=== PATIENT | female | born 1995 | race Caucasian/White ===

== ENCOUNTER 2018-07-08 13:58 | Emergency (ER) | payer MEDICAID, OTHER ==
[~2018-07-08] VITALS: Ht 170.2 cm; Wt 68.0 kg
[2018-07-08] MEDS ORDERED: HYDROMORPHONE 1 MG/1 ML DISP.SYRIN ONE (14:27)
[2018-07-08] MEDS ORDERED: ONDANSETRON 4 MG/2 ML VIAL ONE (14:28)
[2018-07-08] MEDS ORDERED: ONDANSETRON 4 MG/2 ML VIAL IM ONE (14:30)
[2018-07-08] MEDS ORDERED: HYDROMORPHONE 1 MG/1 ML DISP.SYRIN IM ONE (14:30)
[2018-07-08 14:38] LABS: BASOPHILS % (AUTO) 0.6 % (0.0-2.0); EOSINOPHILS # (AUTO) 0.1 K/uL (0.0-0.7); EOSINOPHILS % (AUTO) 1.3 % (0.0-7.0); HEMATOCRIT 39.5 % (31.2-41.9); HEMOGLOBIN 13.4 g/dL (10.9-14.3); LYMPHOCYTES # (AUTO) 1.7 K/uL (20.0-40.0); LYMPHOCYTES % (AUTO) 25.7 % (20.5-51.5); MEAN CORPUSCULAR HEMOGLOBIN 31.2 uug (24.7-32.8); MEAN CORPUSCULAR HGB CONC 34 g/dL (32.3-35.6); MEAN CORPUSCULAR VOLUME 91.8 fL (75.5-95.3); MONOCYTES # (AUTO) 0.3 K/uL (2.0-10.0); MONOCYTES % (AUTO) 4.3 % (0.0-11.0); NEUTROPHILS # (AUTO) 4.5 K/uL (1.8-8.9); NEUTROPHILS % (AUTO) 68.1 % (38.5-71.5); PLATELET COUNT (AUTO) 308 K/uL (179-408); WHITE BLOOD COUNT (AUTO) 6.6 K/uL (3.8-11.8)
[2018-07-08 14:43] LABS: CREATININE 0.7 mg/dL (0.6-1.3)
[2018-07-08 14:53] LABS: BILIRUBIN,DIRECT 0.2 mg/dL (0.0-0.2); BILIRUBIN,TOTAL 0.4 mg/dL (0.2-1.0); TOTAL PROTEIN, SERUM 7.3 g/dL (6.4-8.2)
--- NOTE | 2018-07-08 15:04 | NUR ---
Patient discharged to home in stable conditon with boyfriend. Written and verbal after care instructions given. Patient verbalizes understanding of instructions. Stressed follow up with pmd.
--- NOTE | 2018-07-08 15:05 | NUR ---
Pt ambulated out of ER with steady gait with her boyfriend (who states he will drive the pt home).
== END 2018-07-08 15:06 | disposition home or self-care (01) ==
LOC: ER 13:58
DX: M54.5 Low back pain (principal)
CPT/HCPCS: 36415; 80048; 80076; 83690; 85025; 96372 ×2; 99283; J1170; J2405; A4663